=== PATIENT | female | born 1990 | race American Indian/Alaskan Native ===

== ENCOUNTER 2016-08-23 10:49 | Emergency (ER) | payer OTHER ==
[2016-08-23 10:57] VITALS: BP 113/72; PULSE 77; RESP 18; TEMP 98.2; O2SAT 100
[2016-08-23] MEDS ORDERED: Sodium Chloride 0.9% 1,000 ML IV ONE (11:23)
[2016-08-23 11:46] LABS: BASO % 0.5 % (0.0-2.0); EOS # 0.5 K/uL (0.0-0.7); EOS % 7.3 % (0.0-4.0); HEMATOCRIT 33.7 % (34.0-47.0); LYMPH # 2.2 K/uL (1.0-4.3); MEAN CELL VOLUME 101.4 fL (81.0-99.0); MEAN CORPUSCULAR HEMOGLOBIN 33.2 pg (27.0-31.0); MEAN CORPUSCULAR HGB CONC 32.7 g/dL (33.0-37.0); MEAN PLATELET VOLUME 10.4 fL (7.2-11.7); MONO # 0.7 K/uL (0.0-0.8); MONO % 11.3 % (0.0-10.0); RED CELL DISTRIBUTION WIDTH 12.4 % (11.5-14.5); WHITE BLOOD COUNT 6.2 K/uL (4.8-10.8)
[2016-08-23 11:50] LABS: RBC URINE 2 /hpf (0-3); URINE BILIRUBIN NEGATIVE (NEGATIVE); URINE BLOOD NEGATIVE (NEGATIVE); URINE COLOR Yellow (YELLOW); URINE GLUCOSE (UA) NORMAL (Normal); URINE KETONE NEGATIVE (NEGATIVE); URINE LEUKOCYTE ESTERASE NEG Leu/uL (Negative); URINE PROTEIN NEGATIVE (NEGATIVE); URINE UROBILINOGEN NORMAL mg/dL (0.2-1.0); WBC URINE 1 /hpf (0-5)
--- NOTE | 2016-08-23 11:50 | C.PDOC ---
History Of Present Illness 26 yr old female presents to the ER with complaints of vaginal spotting since morning. Reports upon wiping she saw bright red blood. Patient is currently 6 weeks , . Admits she has not seen the OBGYN for this yet. Denies fever, nausea, vomiting, abdominal pain, diarrhea, pelvic pain, dysuria, weakness or numbness. Time Seen by Provider: 08/23/16 11:06 Chief Complaint (Nursing): Female Genitourinary History Per: Patient History/Exam Limitations: no limitations Onset/Duration Of Symptoms: Sudden Onset (In morning) Past Medical History Reviewed: Historical Data, Nursing Documentation, Vital Signs Vital Signs: Last Vital Signs Temp 98.2 F 08/23/16 10:55 Pulse 77 08/23/16 10:55 Resp 18 08/23/16 10:55 BP 113/72 08/23/16 10:55 Pulse Ox 100 08/23/16 13:35 Family History: States: No Known Family Hx - Social History Hx Alcohol Use: No Hx Substance Use: No - Immunization History Hx Tetanus Toxoid Vaccination: No Hx Influenza Vaccination: No Hx Pneumococcal Vaccination: No Review Of Systems Except As Marked, All Systems Reviewed And Found Negative. Constitutional: Negative for: Fever Gastrointestinal: Negative for: Nausea, Vomiting, Abdominal Pain, Diarrhea Genitourinary: Positive for: Other ((+) Vaginal spotting.). Negative for: Dysuria, Pelvic Pain Neurological: Negative for: Weakness, Numbness Physical Exam - Physical Exam Appears: Well, Non-toxic, No Acute Distress Skin: Warm, Dry, No Rash Head: Atraumatic, Normacephalic Oral Mucosa: Moist Chest: Symmetrical, No Tenderness Cardiovascular: Rhythm Regular, No Murmur Respiratory: Normal Breath Sounds, No Rales, No Rhonchi, No Wheezing Gastrointestinal/Abdominal: Normal Exam, Soft, No Tenderness, No Guarding, No Rebound Extremity: Normal ROM, No Swelling Neurological/Psych: Oriented x3, Normal Speech, Normal Motor ED Course And Treatment - Laboratory Results Result Diagrams: 08/23/16 11:40 08/23/16 11:40 O2 Sat by Pulse Oximetry: 100 (RA) Pulse Ox Interpretation: Normal - CT Scan/US US - Transvaginal Other Rad Studies (CT/US): Read By Radiologist, Radiology Report Reviewed CT/US Interpretation: Pelvic ultrasound. History: . Vaginal bleeding. Comparison: None available. Technique: Real-time sonography was performed through the pelvis. Findings: Positive test with HCG level measuring 888. Uterus: 8.2 x 5.3 x 6.2 centimeters. Heterogeneous echotexture. Retroverted. Cervix measures 2.7 centimeters. Small hypoechoic cystic foci in the uterus which may represent an intrauterine gestational sac measuring approximately 4 millimeters. This is too small to adequately date. No yolk sac or pole identified. No free fluid in the pelvic cul-de-sac. Right ovary: 2.8 x 1.5 x 2.5 centimeters. Normal flow. Left ovary: 3.4 x 2.8 x 2.7 centimeters. Normal flow. Hypoechoic cyst measuring 2.2 x 1.6 x 2.2 centimeters within the left ovary. Free fluid adjacent to the left ovary. LMP of 07/12/2016. Impression: Small hypoechoic cystic structure seen within the uterus measuring approximately 4 millimeters too small to adequately date. This may represent an intrauterine gestational sac. These findings may represent an early intrauterine ; however, developing missed cannot be excluded. Continued interval followup may be helpful if clinically indicated. 2.2 centimeter left ovarian cyst. Free fluid adjacent to the left ovary. Limited 1st trimester ultrasound for viability purposes only. Continued interval followup with serial ultrasound, serial HCG levels, and gynecological consultation would be helpful if clinically indicated. Progress Note: US - Transvaginal, CBC, CMP, Urinalysis, Sodium Chloride IV are ordered. Disposition Counseled Patient/Family Regarding: Studies Performed, Diagnosis, Need For Followup - Disposition Referrals: [facility] [Outside] [facility] [Outside] Disposition: HOME/ ROUTINE Disposition Time: 13:30 Condition: STABLE Additional Instructions: FOLLOW UP WITH DOCUMENT IMAGING SPECIALIST WITHIN 1 WEEK RETURN TO ER IF SYMPTOMS WORSEN Instructions: (ED), First Trimester Vaginal Bleed (ED) Print Language: YORUBA - POA Present On Arrival: None - Clinical Impression Clinical Impression: Vaginal spotting, Early stage of - Scribe Statement The provider has reviewed the documentation as recorded by the Roelibe Shreya Somers Provider Attestation: All medical record entries made by the Roelibdavid were at my direction and personally dictated by me. I have reviewed the chart and agree that the record accurately reflects my personal performance of the history, physical exam, medical decision making, and the department course for this patient. I have also personally directed, reviewed, and agree with the discharge instructions and disposition.
[2016-08-23 11:56] LABS: CHLORIDE 104 mmol/L (98-107); SODIUM 139 mmol/L (132-148)
[2016-08-23 11:59] LABS: ALB/GLOB RATIO 1.2 (1.0-2.1); ALKALINE PHOSPHATASE 38 U/L (38-126); ALT/SGPT 20 U/L (9-52); AST/SGOT 54 U/L (14-36); BILIRUBIN,TOTAL 1.3 mg/dL (0.2-1.3); BLOOD UREA NITROGEN 16 mg/dL (7-17); CARBON DIOXIDE 26 mmol/L (22-30); GFR AFRICAN-AMERICAN > 60; GLUCOSE,RANDOM 77 mg/dL (65-105)
[2016-08-23 12:00] LABS: CALCIUM 8.5 mg/dl (8.6-10.4)
[2016-08-23 12:02] LABS: POTASSIUM 4.3 mmol/L (3.6-5.2)
--- NOTE | 2016-08-23 13:21 | US ---
Pelvic ultrasound History: . Vaginal bleeding. Comparison: None available. Technique: Real-time sonography was performed through the pelvis. Findings: Positive test with HCG level measuring 888. Uterus: 8.2 x 5.3 x 6.2 centimeters. Heterogeneous echotexture. Retroverted. Cervix measures 2.7 centimeters. Small hypoechoic cystic foci in the uterus which may represent an intrauterine gestational sac measuring approximately 4 millimeters. This is too small to adequately date. No yolk sac or pole identified. No free fluid in the pelvic cul-de-sac. Right ovary: 2.8 x 1.5 x 2.5 centimeters. Normal flow. Left ovary: 3.4 x 2.8 x 2.7 centimeters. Normal flow. Hypoechoic cyst measuring 2.2 x 1.6 x 2.2 centimeters within the left ovary. Free fluid adjacent to the left ovary. LMP of 07/12/2016. Impression: Small hypoechoic cystic structure seen within the uterus measuring approximately 4 millimeters too small to adequately date. This may represent an intrauterine gestational sac. These findings may represent an early intrauterine ; however, developing missed cannot be excluded. Continued interval followup may be helpful if clinically indicated. 2.2 centimeter left ovarian cyst. Free fluid adjacent to the left ovary. Limited 1st trimester ultrasound for viability purposes only. Continued interval followup with serial ultrasound, serial HCG levels, and gynecological consultation would be helpful if clinically indicated.
== END 2016-08-23 13:45 | disposition home or self-care (01) ==
LOC: C.ER 10:49
DX: O26.851 Spotting complicating pregnancy, first trimester (principal); Z3A.01 Less than 8 weeks gestation of pregnancy

== ENCOUNTER 2016-08-24 13:09 | Emergency (ER) | payer OTHER ==
[2016-08-24 13:27] VITALS: BMI 28.5
[2016-08-24 13:29] VITALS: O2SAT 99
[2016-08-24] MEDS ORDERED: Sodium Chloride 0.9% 1,000 ML IV ONE (14:12)
[2016-08-24 14:40] LABS: BASO # 0.1 K/uL (0.0-0.2); EOS # 0.5 K/uL (0.0-0.7); EOS % 7.4 % (0.0-4.0); HEMATOCRIT 33.3 % (34.0-47.0); LYMPH # 2.2 K/uL (1.0-4.3); LYMPH % 35.9 % (20.0-40.0); MEAN CELL VOLUME 101.7 fL (81.0-99.0); MEAN CORPUSCULAR HEMOGLOBIN 33.2 pg (27.0-31.0); MEAN CORPUSCULAR HGB CONC 32.6 g/dL (33.0-37.0); MEAN PLATELET VOLUME 10.1 fL (7.2-11.7); MONO # 0.7 K/uL (0.0-0.8); MONO % 11.8 % (0.0-10.0); NRBC % 0.1 % (0.0-2.0); RED CELL DISTRIBUTION WIDTH 12.4 % (11.5-14.5); WHITE BLOOD COUNT 6.2 K/uL (4.8-10.8)
[2016-08-24 15:08] LABS: RBC URINE 1207 /hpf (0-3); URINE BILIRUBIN NEGATIVE (NEGATIVE); URINE BLOOD 3+ (NEGATIVE); URINE COLOR Yellow (YELLOW); URINE GLUCOSE (UA) NORMAL (Normal); URINE KETONE NEGATIVE (NEGATIVE); URINE LEUKOCYTE ESTERASE NEG Leu/uL (Negative); URINE PROTEIN 1+ mg/dL (NEGATIVE); URINE UROBILINOGEN NORMAL mg/dL (0.2-1.0); WBC URINE 1 /hpf (0-5)
--- NOTE | 2016-08-24 15:20 | C.PDOC ---
History Of Present Illness 26 yr old female presents to the ER with complaints of vaginal bleeding since yesterday. Patient evaluated yesterday, no IUP seen, returns today stating the bleeding has increased. denies any pain. Denies fever, chest pain, SOB, nausea, vomiting, abdominal pain, dysuria, vaginal discharge, back pain or dizziness. Time Seen by Provider: 08/24/16 13:58 Chief Complaint (Nursing): Female Genitourinary History Per: Patient History/Exam Limitations: no limitations Onset/Duration Of Symptoms: Days (1) Past Medical History Reviewed: Historical Data, Nursing Documentation, Vital Signs Vital Signs: Last Vital Signs Temp 98 F 08/24/16 16:36 Pulse 77 08/24/16 16:36 Resp 20 08/24/16 16:36 BP 118/71 08/24/16 16:36 Pulse Ox 99 08/24/16 16:54 Family History: States: No Known Family Hx - Social History Hx Alcohol Use: No Hx Substance Use: No - Immunization History Hx Tetanus Toxoid Vaccination: No Hx Influenza Vaccination: No Hx Pneumococcal Vaccination: No Review Of Systems Except As Marked, All Systems Reviewed And Found Negative. Constitutional: Negative for: Fever Cardiovascular: Negative for: Chest Pain, Light Headedness Respiratory: Negative for: Shortness of Breath Gastrointestinal: Negative for: Nausea, Vomiting, Abdominal Pain Genitourinary: Positive for: Vaginal Bleeding. Negative for: Dysuria Neurological: Negative for: Headache, Dizziness Physical Exam - Physical Exam Appears: Well, Non-toxic, No Acute Distress Skin: Warm, Dry, No Rash Head: Atraumatic, Normacephalic Eye(s): bilateral: Normal Inspection, EOMI Nose: Normal Oral Mucosa: Moist Neck: Normal, Normal ROM, Supple Chest: Symmetrical, No Tenderness Cardiovascular: Rhythm Regular, No Murmur Respiratory: Normal Breath Sounds, No Rales, No Rhonchi, No Wheezing Gastrointestinal/Abdominal: Normal Exam, Soft, No Tenderness, No Guarding, No Rebound Extremity: Normal ROM, No Swelling Neurological/Psych: Oriented x3, Normal Speech, Normal Motor ED Course And Treatment - Laboratory Results Result Diagrams: 08/24/16 14:33 08/24/16 14:33 O2 Sat by Pulse Oximetry: 99 Progress Note: PLAN: CBC, CMP, BETA HCG, Urinalysis & Sodium Chloride IV. Case discussed with Dr Kaba, evaluated US and agreed upon plan and treatment. No repeat US today, liekly no change. Discussed with patient BETA HCG minimally decreased and bleeding increased, likely having a miscarriage. Patient is instructed to f/u with PMD/ER for repeat BETA in 3 days. Patient reports history of anemia, denies dizziness, SOB, lightheaded or palpitations and discussed with patient to return to ED if sypmtoms arise. Disposition - Disposition Disposition: HOME/ ROUTINE Disposition Time: 15:17 Condition: STABLE Additional Instructions: Follow up with your OB/ER in 3-5 days for further evaluation. Return to the emergency department at any time if symptoms persist or worsen. Instructions: Spontaneous Miscarriage (ED) - Clinical Impression Clinical Impression: Spontaneous miscarriage - PA / FIELD SERVICE CONSULTANT / Resident Statement MD/DO has reviewed & agrees with the documentation as recorded. - Scribe Statement The provider has reviewed the documentation as recorded by the Scribe Shreya Somers All medical record entries made by the Roelibe were at my direction and personally dictated by me. I have reviewed the chart and agree that the record accurately reflects my personal performance of the history, physical exam, medical decision making, and the department course for this patient. I have also personally directed, reviewed, and agree with the discharge instructions and disposition.
[2016-08-24 15:21] LABS: CHLORIDE 103 mmol/L (98-107); POTASSIUM 3.9 mmol/L (3.6-5.2); SODIUM 137 mmol/L (132-148)
[2016-08-24 15:23] LABS: GFR AFRICAN-AMERICAN > 60
[2016-08-24 15:24] LABS: ALB/GLOB RATIO 1.2 (1.0-2.1); ALKALINE PHOSPHATASE 49 U/L (38-126); ALT/SGPT 17 U/L (9-52); AST/SGOT 37 U/L (14-36); BILIRUBIN,TOTAL 0.6 mg/dL (0.2-1.3); BLOOD UREA NITROGEN 14 mg/dL (7-17); CALCIUM 8.5 mg/dl (8.6-10.4); CARBON DIOXIDE 25 mmol/L (22-30); GLUCOSE,RANDOM 94 mg/dL (65-105); TOTAL PROTEIN 6.9 g/dL (6.3-8.3)
[2016-08-24] MEDS ORDERED: Bacitracin 500 Units/gm Oint Foilpak UD ONE (16:11)
[2016-08-24 16:37] VITALS: BP 118/71; PULSE 77; RESP 20; TEMP 98
== END 2016-08-24 16:38 | disposition home or self-care (01) ==
LOC: C.ER 13:09
DX: O03.9 Complete or unspecified spontaneous abortion without complication (principal)
CPT/HCPCS: 80053; 81001; 84702; 84703; 85025; 87086; 99284; J7040